=== PATIENT | male | born 1950 | race Caucasian/White ===

== ENCOUNTER 2018-02-25 11:02 | Day surgery (SDC) | payer OTHER ==
[~2018-02-25] VITALS: Ht 167.6 cm; Wt 83.4 kg
[~2018-02-25 11:02] MED LIST: ALEVE220 MG PO; APPLE CIDER VI500 MG PO; ASPIRIN81 M2 PO; CAL MAG ZINC +1 EAC1 PO; CINNAMON500 MG PO; COQ-10100 MG PO; FISH OIL 1,0001 EAC7 PO; METFORMIN HCL500 M1 PO; SUPER BETA PROSTATE PO; TRAMADOL HCL50 MG PO; ZESTRIL40 MG PO
[2018-02-25 12:14] VITALS: BP 176/94
[2018-02-25 16:26] VITALS: BP 166/88
== END 2018-02-25 16:26 | disposition home or self-care (01) ==
LOC: SDC 11:02
PROVIDERS: Ophthalmology
PROC: 08B53ZZ Excision of Left Vitreous, Percutaneous Approach (ICD-10-PCS; principal; 2018-02-25)
DX: E11.319 Type 2 diabetes mellitus with unspecified diabetic retinopathy without macular edema (principal); H33.012 Retinal detachment with single break, left eye; I10 Essential (primary) hypertension; F41.9 Anxiety disorder, unspecified; N40.0 Benign prostatic hyperplasia without lower urinary tract symptoms; I49.3 Ventricular premature depolarization; Z79.84 Long term (current) use of oral hypoglycemic drugs; Z79.82 Long term (current) use of aspirin
CPT/HCPCS: 82948; 93005; J0690; J1100; J2250; J2795; J3300